=== PATIENT | male | born 1930 | race Caucasian/White ===

== ENCOUNTER → 2016-05-20 | Outpatient (CLI) | payer OTHER | LOC: BMCIMAGING 14:17 | PROVIDERS: ATTEND Internal Medicine | DX: M99.88 Other biomechanical lesions of rib cage (principal) ==

== ENCOUNTER → 2016-08-16 | Outpatient (CLI) | payer OTHER ==
[~2016-08-16] MED LIST: GADOBUTROL 10 ML VIAL IVP ONE
== END ==
LOC: FIMAGING 13:44
PROVIDERS: ATTEND Ophthalmology Pediatric Ophthalmology and Strabismus Specialist
DX: H54.7 Unspecified visual loss (principal); J32.3 Chronic sphenoidal sinusitis
CPT/HCPCS: 70543; 70553; A9585

== ENCOUNTER 2017-01-30 15:12 | Inpatient (IN) | payer OTHER ==
[2017-01-30] MEDS ORDERED: ONDANSETRON DISINTEGRATING 4 MG TAB PO PRN (15:15)
[2017-01-30] MEDS ORDERED: ACETAMINOPHEN 325 MG TAB PO PRN (15:15)
[2017-01-30] MEDS ORDERED: NS 1,000 ML IV SCH (15:15)
[2017-01-30] MEDS ORDERED: ONDANSETRON 4 MG/2 ML VIAL IVP PRN (15:15)
--- NOTE | 2017-01-30 15:24 | PDGENHP ---
History and Physical - Chief Complaint Acute weakness - History of Present Illness Primary oncologist: Dr. Jono Conway HPI: 86-year-old male presenting with acute weakness characterized as generalized, with associated subjective fevers (home temp around 100F), inability to ambulate, and non-productive cough. Onset of the weakness symptoms was several days prior, and duration has been worsening thereafter. The cough has been present for a couple weeks. The patient has also had reportedly low oral intake of solids and liquids, 2/2 dysphagia, although he does not specifically recall aspirating. He notes one episode of non-bloody diarrhea on the date of presentation, which was unusual for him, as he is normally constipated. Of note, the patient received his most recent chemotherapy on 01/20, including dexamethasone 20 mg IV, Velcade, then received subsequent oral dexamethasone 4 mg twice daily, discontinued last week. He notes a tremor which has been present for years, recently worsening. History Information - Allergies/Home Medication List Allergies/Adverse Reactions: No Known Allergies Allergy (Verified 10/17/14 02:50) Home Medications: Acyclovir [Zovirax 200 mg (RX)] 200 mg PO BID 06/17/11 [Last Taken 01/30/17 08: 00] traMADol [Ultram 50 mg (*)] 50 mg PO DAILY 10/17/14 [Last Taken 01/30/17 08:00] Herbals/Supplements -Info Only 1 ea PO DAILY 01/30/17 [Last Taken Unknown] I have personally reviewed and updated: family history, medical history, social history, surgical history - Past Medical History Additional medical history: Multiple myeloma with recently rising capital lambda light chain, 665 on 01/10/2017. chronic kidney disease stage 3 baseline creatinine 1.1. Chronic tremor - Surgical History Additional surgical history: Kyphoplasty L1 - Family History Additional family history: no family hx of MM or parkinson's - Social History Smoking Status: Never smoked Alcohol Use: None Drug Use: None Additional social history: lives w/ , previously independent, arived in wheelchair Review of Systems Review of Systems: ROS: 10pt was reviewed & negative except for what was stated in HPI & below Constitutional: Reports: fever, weakness, other (Anorexia) Respiratory: Reports: cough Gastrointestinal: Reports: diarrhea Physical Exam Physical Exam: Constitutional: no apparent distress, not in pain, chronically ill appearing, No uncomfortable Eyes: PERRL, anicteric sclera, EOMI Ears, Nose, Mouth, Throat: moist mucous membranes, hearing normal, ears appear normal, no oral mucosal ulcers Cardiovascular: regular rate and rhythym, no murmur, rub, or gallop, No edema Respiratory: no respiratory distress, no rales or rhonchi, clear to auscultation Gastrointestinal: soft, non-tender abdomen, no palpable masses, other ( hyperactive bowel sounds), No guarding, No distension Genitourinary: no bladder fullness, no bladder tenderness Skin: warm, normal color, no rashes or abrasions, no fluctuance, no induration, No mottled Neurologic: AAOx3, sensation intact bilaterally, CN II-XII Intact, other ( resting tremor bilat hand, worse w/ intention), No weakness (motor 5/5 bilat UE/ LE) Psychiatric: interacting appropriately, not anxious, not encephalopathic, thought process linear Assessment & Plan Assessment: 86-year-old male presenting with acutely worsening generalized weakness in the setting of multiple myeloma, recent dysphagia, hyponatremia, chronic kidney disease stage 3 Plan: 1. Generalized weakness. Acute, new problem this provider, further workup indicated. Most likely multifactorial in the setting of recent multiple myeloma treatment, underlying undiagnosed Parkinson's disease, poor oral intake with resultant hyponatremia, and chronic kidney disease with recently rising creatinine level, possible steroid-induced myopathy -rule out infectious etiologies with urinalysis, respiratory viral panel -get physical and occupational therapy evaluations -continue to administer full supportive care -TSH and cortisol levels pending -patient choosing to avoid reintroducing dexamethasone, does not like side effects 2. Multiple myeloma. Chronic, with diffuse bony disease, reviewed outside records including 04/25/2014 bone scan demonstrating multiple lytic lesions, worse at the 6th rib -appreciate ongoing oncology consultation -appreciate Oncology discussing ongoing treatment options with the patient and his family 3. Possible Parkinson's disease. Chronic, increases risk of morbidity and/or mortality if present, secondary to anticipated acute decompensation in his physical abilities when he is experiencing other medical issues -recommend outpatient neurology consultation 4. Hyponatremia. Acute, secondary to hypovolemia in the setting of poor oral intake, provide IV normal saline and gauge response 5. Chronic kidney disease stage 3. Patient experiencing some acute dehydration in the setting of poor oral intake with rising BUN, marginally elevated creatinine from baseline of 1.1 -continue to monitor urine output, creatinine, BUN -if creatinine continues to rise, patient should be re-characterized as having acute kidney injury 6. Dysphagia. Get VFSS, get [employer] eval -get CXR to r/o aspiration PNA Diet. Regular as tolerates, Ensure Prophylaxis. High risk patient, heparin subcu Code. Do not resuscitate per my discussion with Mojgan nurse practitioner at [facility] Disposition. Anticipated discharge uncertain this time, anticipated length stay is greater than 48 hr warranting inpatient admission status reasonable medical necessity including acute generalized weakness right patient unable to safely and comma unable to safely complete activities of daily living, in the setting of high risk comorbid chronic multiple myeloma, chronic Parkinson's disease by acute hyponatremia, chronic kidney disease stage 3 with some dehydration possible acute kidney injury. Discussed with Dr. Pam Johnson, she reports to me that oncology will consult on the patient tomorrow.
[2017-01-30] MEDS: NS 500 ML IV SCH (18:46)
[2017-01-30 21:38] LABS: COLOR YELLOW; LEUKOCYTE ESTERASE,URINE NEGATIVE (NEGATIVE); NITRITE,URINE NEGATIVE (NEGATIVE)
[2017-01-30 21:57] LABS: MUCUS 1+ /lpf (NONE-1+)
[2017-01-30] MEDS: HEPARIN 5,000 UNIT/0.5 ML SYR SC SCH (22:40)
[2017-01-30] MEDS: ACYCLOVIR 200 MG CAP PO SCH (22:41)
[2017-01-31] MEDS: NS 500 ML IV SCH (00:46)
[2017-01-31] MEDS: HEPARIN 5,000 UNIT/0.5 ML SYR SC SCH ×3 (06:01→21:07)
[2017-01-31 06:03] LABS: % IMMATURE GRANULYOCYTES 0.4 % (0.0-1.1); ABSOLUTE IMMATURE GRANULOCYTES 0.03 10^3/uL (0.00-0.10); ADD DIFF? NO; ADD MORPH? NO; ADD SCAN? NO; ATYPICAL LYMPHOCYTE FLAG 0 (0-99); FRAGMENT RBC FLAG 20 (0-99); HEMATOCRIT 39.5 % (40.0-51.0); LEFT SHIFT FLG 0 (0-99); LIPEMIA HEMOLYSIS FLAG 80 (0-99); MEAN CELL HEMOGLOBIN 31.6 pg (27.9-34.1); MEAN CELL HEMOGLOBIN CONCENTR. 32.9 g/dL (32.4-36.7); MEAN CELL VOLUME 95.9 fL (81.5-99.8); MEAN PLATELET VOLUME 9.8 fL (8.7-11.7); PLATELET CLUMPS FLAG 10 (0-99); PLATELET COUNT 180 10^3/uL (150-400); RED BLOOD CELL COUNT 4.12 10^6/uL (4.40-6.38); RED CELL DISTRIBUTION WIDTH 13.1 % (11.5-15.2)
[2017-01-31 06:20] LABS: ANION GAP 7 mEq/L (8-16); CALCIUM 8.2 mg/dL (8.5-10.4); CARBON DIOXIDE 24 mEq/l (22-31); CHLORIDE 102 mEq/L (97-110); CREATININE 1.1 mg/dL (0.7-1.3); GLOMERULAR FILTRATION RATE > 60; GLUCOSE 105 mg/dL (70-100); POTASSIUM 4.7 mEq/L (3.5-5.2); SODIUM 133 mEq/L (134-144)
[2017-01-31] MEDS ORDERED: Herbals/Supplements -Info Only PO SCH (09:00)
[2017-01-31] MEDS ORDERED: D5W 1/2 NS 1,000 ML IV SCH (10:15)
--- NOTE | 2017-01-31 10:30 | HOSPPROG ---
Hospitalist Progress Note Assessment/Plan: Weakness - No evidence of infectious etiology, afebrile, nl wbc's. Query if he is hypovolemic. Given his episode of diarrhea, will check GI pathogen panel. This may be a sign of Parkinson's, especially given his recent falls. Discussed with Dr. Johnson, Onc, who does not believe his MM treatment would cause this. -PT/OT evals Multiple myeloma - On Velcade, Daritubimab and Dex (declining the latter due to untoward side effects). Onc doubts these meds are contributing to weakness. Blurred vision - This has been present for a year per pt and he is followed by a retinologist, reportedly no e/o retinopathy. He is s/p cataract surgery. Dysphagia - NPO, awaiting VFSS. D5 NS. -speech / swallow eval - appropriate for reg diet Hyponatremia - mild, suspect hypovolemic. Cont NS and follow. ?Parkinson's - he has had 2 falls recently. Needs neurology consult. CKD - Cr at baseline, 1.1 Code status - DNR DVT PPLX - Lovenox Dispo - cont inpt, PT/OT evals, may benefit from SNF Subjective: Pt is frustrated about being NPO. He is hungry and wants to eat. Denies any pain, fever or focal symptoms. Not really sure why he is here. Objective: Vital Signs Temp Pulse Resp BP Pulse Ox 36.9 C 73 15 138/89 H 93 01/31/17 07:26 01/31/17 07:26 01/31/17 07:26 01/31/17 07:26 01/31/17 07:26 Microbiology 01/30/17 22:45 Respiratory Panel (PCR) - Final Nasal, Sinus - [place] Viral Transport No Organism Detected Laboratory Results 01/31/17 04:52 01/31/17 04:52 01/30/17 01/31/17 02/01/17 05:59 05:59 05:59 Intake Total 1650 Output Total 150 150 Balance 1500 -150 - Physical Exam Constitutional: no apparent distress Eyes: PERRL Ears, Nose, Mouth, Throat: moist mucous membranes Cardiovascular: regular rate and rhythym Respiratory: no respiratory distress Gastrointestinal: normoactive bowel sounds, soft, non-tender abdomen Skin: warm Musculoskeletal: generalized weakness Neurologic: AAOx3, other (mild cog-wheeling LUE, masked facies) Psychiatric: interacting appropriately ICD10 Worksheet Patient Problems: Problems Problem Status Onset Weakness Acute - ICD10 Problem Qualifiers (1) Weakness
[2017-01-31] MEDS: D5W NS 1,000 ML IV SCH ×2 (11:04→21:07)
--- NOTE | 2017-01-31 11:39 | PDMN ---
Medical Necessity Medical necessity: Pt meets IP criteria per MD; est los >2 mn for eval/tx of acute generalized weakness w/inability to ambulate safely/complete ADLs, hyponatremia & dysphagia; admit for further workup/monitoring & therapies; hx multiple myeloma, CKD & possible Parkinson's disease; per H&P & order 01/31/17
[2017-01-31] MEDS: traMADol 50 MG TAB PO SCH (14:50)
[2017-01-31] MEDS: ACYCLOVIR 200 MG CAP PO SCH ×2 (14:50→21:06)
--- NOTE | 2017-01-31 17:48 | ASMTCMCOM ---
CM Note CM Note Notes: Patient here with diagnosis of Multiple Myeloma who has been treated wtith chemo therapy. Patient admitted with weakness feeling it may related to his current regimen. Patient likely to be here for a while. Case management will continue to follow. Date Signed: 01/31/2017 05:48 PM Electronically Signed By:LUDIVINA Lyon
--- NOTE | 2017-01-31 18:32 | GCON ---
[f rep st] CONSULTATION ONCOLOGY CONSULTATION REASON FOR CONSULTATION: History of multiple myeloma, admitted for generalized weakness. HISTORY OF PRESENT ILLNESS: The patient is an 86-year-old male with a long history of multiple myelo ma. He was admitted from the office yesterday after presenting with symptoms of generalized weakness . His myeloma history dates back to May of 2011, when he was diagnosed with an IgG kappa multiple myeloma, stage I. 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 He has had multiple prior therapies including CyBorD, Velc gigi, dexamethasone, Revlimid and more recently daratumumab. He was being treated with daratumumab, d examethasone and bortezomib in the spring and stopped the daratumumab in July. His M protein filiberto fr om 0.4 g/dL to 2.4 g. He was resumed back on therapy with daratumumab, Velcade and dexamethasone and received that on January 20. The patient describes increasing weakness that he cannot necessarily t ie to the therapy. He notes significant blurred vision, which is very frustrating for him. He has h ad bilateral cataract surgery and is seen by Dr. Huerta, retinologist. No retinopathy was identifie d. The patient reports feeling just generalized weakness. He states that he fell in the bathroom a coup le of nights ago. He denies any fevers or chills. He denies sweats, cough, or shortness of breath. He denies any GI symptoms. He is repeatedly asking to go home. PAST MEDICAL HISTORY: Multiple myeloma as per HPI. Mild renal insufficiency with a creatinine of 1. 1. Chronic tremor. PAST SURGICAL HISTORY: History of kyphoplasty at L1, status post bilateral cataract removal, arthros copic surgery of both knees and a prostatectomy in 2000. FAMILY HISTORY: Noncontributory. SOCIAL HISTORY: The patient is to Carla. They have 1 daughter, Chayo. 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 He is a nondrinker and nonsmoker. REVIEW OF SYSTEMS: A 10-point review of systems is negative other than what is stated in HPI. PHYSICAL EXAM: GENERAL: He is an elderly male, sitting comfortably in a chair. VITAL SIGNS: Blood pressure 138/89, heart rate 73, O2 saturation is 93% on 1 L. He is afebrile. HEENT: Extraocular m uscles are intact. Oropharynx has somewhat dry mucosa. HEART: Regular rate. LUNGS: Clear to ausc ultation. ABDOMEN: Soft and nontender. EXTREMITIES: No edema. NEURO: The patient has a flat fac ies and has a mild tremor with a suggestion of some underlying stiffness. LABORATORY DATA: White blood cell count 7.3, hematocrit 39.5, platelets 180. Chemistries: Creatini ne 4.7, sodium 133. IMAGING: Chest x-ray, PA and lateral: Unremarkable. No infiltrate. IMPRESSION: This is an 86-year-old male who has had history of multiple myeloma now for 5 years, rec ently resuming treatment with daratumumab, Velcade and dexamethasone, who presents with increasing we akness and history of a fall a few days ago. It is not clear to me that his weakness is tied to the current therapy, which is typically not very toxic. His appearance is suggestive of Parkinson's. Ho wever, this has not been a formal diagnosis. There are no signs of infection or significant metaboli c abnormality. We will continue to follow along with you, but at this time, there does not appear to be an active on cologic process that is contributing to his symptoms. He may require some type of physical therapy a nd/or treatment of Parkinson's if this is what he is felt to have. /[id number]/MODL
[2017-02-01 05:39] LABS: ANION GAP 3 mEq/L (8-16); CARBON DIOXIDE 27 mEq/l (22-31); CHLORIDE 102 mEq/L (97-110); GLOMERULAR FILTRATION RATE > 60; GLUCOSE 106 mg/dL (70-100); POTASSIUM 4.5 mEq/L (3.5-5.2); SODIUM 132 mEq/L (134-144)
[2017-02-01 05:55] LABS: CALCIUM 7.5 mg/dL (8.5-10.4)
[2017-02-01] MEDS: HEPARIN 5,000 UNIT/0.5 ML SYR SC SCH ×3 (06:07→20:27)
[2017-02-01] MEDS: ACYCLOVIR 200 MG CAP PO SCH ×2 (09:28→20:28)
[2017-02-01] MEDS: traMADol 50 MG TAB PO SCH (09:28)
[2017-02-01] MEDS: D5W NS 1,000 ML IV SCH (09:35)
[2017-02-01] MEDS ORDERED: LACTULOSE 20 GM/30 ML UDCUP PO PRN (10:20)
[2017-02-01] MEDS ORDERED: MAGNESIUM HYDROXIDE 30 ML UDCUP PO PRN (10:20)
[2017-02-01] MEDS ORDERED: BISACODYL 10 MG SUPP PR PRN (10:20)
[2017-02-01] MEDS ORDERED: POLYETHYLENE GLYCOL 3350 17 GM PKT PO PRN (10:20)
--- NOTE | 2017-02-01 13:14 | NEUROPROG ---
Assessment: HOSPITAL NEUROLOGY CONSULT REQUESTING: Jono Blanco MD REASON: ? Parkinson disease HPI: 86 year old right-handed man with a history of multiple myeloma (undergoing active treatment), CKD3 presented 01/30 due to falls and generalized weakness. No family at bedside today, so most of the history is obtained from records review. Patient lives independently with his . He notes a single fall prior to admission when trying to sit on the toilet - he states he lost balance and feel backwards without any major trauma. He's also noted a month of what he describes as "weakness" but elaborates no further. His admitting team was concerned about the possibility of Parkinson disease given his appearance and falls. He states he's had tremors in both hands for "a long time." He states he does get lightheaded sometimes when he stands up. He denies any incontinence. He notes longstanding erectile dysfunction. He cannot tell if he has any defects in thermoregulation. He denies head trauma. No exposure to dopaminergic medications. He does endorse cognitive decline. ROS: As per the HPI, otherwise a complete 12 point ROS was performed and is negative ALLERGIES AND MEDS: As recorded in the EMR - reviewed and reconciled PFSH: As per the intake H&P by Dr. Blanco from 01/30 EXAM: VS reviewed in EMR GEN: WDWN sitting in NAD HEENT: NCAT, sclera anicteric, conjunctiva not injected, eyelids with crust, MMM , oropharynx clear, no scalp tenderness NECK: supple, nontender, no meningismus CV: RRR s1 s2 wo m/r/c/g. Carotid pulses 2+ wo bruit NEURO: MS: awake, alert, oriented to self, place but not date. He is hypomimetic and bradyphrenic. Speech hypophonic and bradykinetic. No language disturbance. Follows commands. Attends to both sides. Gross episodic memory impairment on casual conversation. Mood euthymic. Good fund of knowledge. CN: pupils 3mm round and reactive. Fundi with sharp discs. VFF. Primary gaze centered - no square wave jerks. Full ocular motility, but saccadic intrusions on smooth pursuit. Facial sensation preserved. Face symmetric. Hearing grossly intact to finger rub. Palatoglossal movements intact. Shoulder shrug and head turn strong. MOTOR: normal bulk. Subtle cogwheeling about both wrists symmetrically. Subtle symmetric resting tremor in both hands with activating maneuvers. Full power throughout. SENSORY: intact LT/PP throughout and symmetric. No extinction. COORD: no ataxia FN/HS. Preeti symmetrically bradykinetic -1-2. REFLEX: plantars down. No clonus. Absent ankle jerks, other DTRS 1/4. GAIT: deferred to PT safety eval - patient on O2 and with IV infusion running DATA REVIEW: Labs reviewed in EMR PERSONALLY INTERPRETED RESULTS AND DATA: MRI brain wo - global volume loss with ex vacuo dilitation of the ventricles. Profound/severe/confluent chronic microvascular ischemic change in the periventricular and subcortical white matter and dilated perivascular spaces in the basal ganglia, with a rather sizeable one in the right putamen. 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 Given these findings I am suspicious for vascular parkinsonism as opposed to neurodegenerative idiopathic PD. Levodopa is likely to have an underwhelming response, and I would be hesitant to start a challenge both in the acute care setting and with his documented orthostatic hypotension. I think the best plan going forward would be optimizing vascular risk to prevent progression, as well as a focus on safety. Recommend he work with PT/OT/PUTTY MAKER on determining rehab and long-term care needs. I did not assess his gait, but he is likely a risk of falls given the history and his other exam findings. Followup with his PCP for optimization of BP (HTN being number one risk for his condition), lipids, blood glucose. I would recommend initiating a daily ASA 81mg. He can followup with me in my clinic after he has a safe disposition and has completed any rehab. Will sign off. Please recall PRN. Objective: Vital Signs Temp Pulse Resp BP Pulse Ox 37.0 C 90 17 121/76 H 94 02/01/17 11:07 02/01/17 11:07 02/01/17 11:07 02/01/17 11:07 02/01/17 11:07 Microbiology 01/30/17 22:45 Respiratory Panel (PCR) - Final Nasal, Sinus - [place] Viral Transport No Organism Detected Laboratory Results 01/31/17 04:52 02/01/17 04:43 01/31/17 02/01/17 02/02/17 05:59 05:59 05:59 Intake Total 1650 1400 Output Total 150 750 230 Balance 1500 650 -230 Allergies/Adverse Reactions: No Known Allergies Allergy (Verified 10/17/14 02:50)
--- NOTE | 2017-02-01 16:33 | SOAPPROG ---
SOAP Progress Note Assessment/Plan: A/P: * Generalized weakness, fall, functional decline: appreciate neurology consultation. ?vascular parkinsonism (chronic vascular white matter dz on MRI) . No specific therapy, but needs rehab. 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 - hold dex - f/u with Dr. Conway after rehab 02/01/17 16:34 Subjective: No real complaints. O: VS reviewed. Single temp 38.2. Gen: fatigued, chronically ill appearing. Pleasant. Lungs: CTA. Abd: nontender. Laboratory Tests 01/31/17 02/01/17 04:52 04:43 WBC 7.27 RBC 4.12 L Hgb 13.0 L Hct 39.5 L Plt Count 180 Sodium 132 L Potassium 4.5 Chloride 102 Carbon Dioxide 27 BUN 25 H Creatinine 1.0 Glucose 106 H Objective: Vital Signs Temp Pulse Resp BP Pulse Ox 36.6 C 80 16 159/89 H 91 L 02/01/17 15:38 02/01/17 15:38 02/01/17 15:38 02/01/17 15:38 02/01/17 15:38 Laboratory Results 01/31/17 04:52 02/01/17 04:43 01/31/17 02/01/17 02/02/17 05:59 05:59 05:59 Intake Total 1650 1400 400 Output Total 150 750 230 Balance 1500 650 170 ICD10 Worksheet Patient Problems: Problems Problem Status Onset Weakness Acute
--- NOTE | 2017-02-01 18:27 | HOSPPROG ---
Hospitalist Progress Note Assessment/Plan: Assessment: 86-year-old male presenting with acutely worsening generalized weakness in the setting of multiple myeloma, recent dysphagia, hyponatremia, chronic kidney disease stage 3 Plan: 1. Generalized weakness. Acute, likely multifactorial in setting of vascular parkinsonism and ongoing MM tx / deconditioning - cont PT/OT assessments, unclear if patient safe for home vs. SNF 2. Multiple myeloma. Chronic, with diffuse bony disease, reviewed outside records including 04/25/2014 bone scan demonstrating multiple lytic lesions, worse at the 6th rib -appreciate ongoing oncology consultation -appreciate Oncology discussing ongoing treatment options with the patient and his family 3. 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 Petit's consultation today -asa 81 -check lipid/A1c 4. Hyponatremia. Acute, ongoing, con D5NS 5. Chronic kidney disease stage 3. Patient experiencing some acute dehydration in the setting of poor oral intake with rising BUN, marginally elevated creatinine from baseline of 1.1 -continue to monitor urine output, creatinine, BUN -if creatinine continues to rise, patient should be re-characterized as having acute kidney injury 6. Dysphagia. Cleared by [employer] Diet. Regular as tolerates, Ensure Prophylaxis. High risk patient, heparin subcu Code. Do not resuscitate per my discussion with Mojgan nurse practitioner at [facility] Disposition. ADD 02/02 to home w/ HC vs. SNF Subjective: patient continues to feel weak, no infxn sx Objective: Vital Signs Temp Pulse Resp BP Pulse Ox 36.6 C 88 16 159/89 H 95 02/01/17 15:38 02/01/17 15:57 02/01/17 15:38 02/01/17 15:38 02/01/17 15:57 Laboratory Results 01/31/17 04:52 02/01/17 04:43 01/31/17 02/01/17 02/02/17 05:59 05:59 05:59 Intake Total 1650 1400 400 Output Total 150 750 530 Balance 1500 650 -130 - Pending Discharge Pending Discharge Within 24 Hours: Yes Pending Discharge Date: 02/02/17 Pending Discharge Time: 11:00 - Physical Exam Constitutional: no apparent distress, not in pain, chronically ill appearing, No uncomfortable Cardiovascular: regular rate and rhythym, no murmur, rub, or gallop Respiratory: no respiratory distress, no rales or rhonchi, clear to auscultation Gastrointestinal: normoactive bowel sounds, soft, non-tender abdomen, no palpable masses Neurologic: AAOx3, sensation intact bilaterally, No weakness (5/5 motor bilat LE ) Psychiatric: interacting appropriately, not anxious, not encephalopathic, thought process linear ICD10 Worksheet Patient Problems: Problems Problem Status Onset Weakness Acute
[2017-02-01] MEDS: SENNOSIDES/DOCUSATE SODIUM TAB PO SCH ×2 (20:27→20:29)
[2017-02-02] MEDS: HEPARIN 5,000 UNIT/0.5 ML SYR SC SCH ×3 (05:11→20:54)
[2017-02-02 06:28] LABS: ANION GAP 8 mEq/L (8-16); CALCIUM 7.9 mg/dL (8.5-10.4); CARBON DIOXIDE 27 mEq/l (22-31); CHLORIDE 98 mEq/L (97-110); CREATININE 1.1 mg/dL (0.7-1.3); GLOMERULAR FILTRATION RATE > 60; GLUCOSE 87 mg/dL (70-100); POTASSIUM 4.4 mEq/L (3.5-5.2); SODIUM 133 mEq/L (134-144)
[2017-02-02] MEDS: SENNOSIDES/DOCUSATE SODIUM TAB PO SCH ×2 (10:13→20:54)
[2017-02-02] MEDS: traMADol 50 MG TAB PO SCH (10:13)
[2017-02-02] MEDS: ACYCLOVIR 200 MG CAP PO SCH ×2 (10:13→20:54)
[2017-02-02] MEDS: ASPIRIN EC 81 MG TAB PO SCH (12:09)
--- NOTE | 2017-02-02 15:42 | ASMTCMCOM ---
CM Note CM Note Notes: Pt with hc of multiple myeloma has a new dx of vascular parkinson's. PT and OT are recommending SNF. Pt, and dtr all prefer for pt to return home with home care. [facility] chosen and alerted. Pt will need RN, PT and OT. Pt will also need a cane or walker and a shower seat. Pt's dtr provided loan closet list. Pt will likely be ready for DC tomorrow. Date Signed: 02/02/2017 03:41 PM Electronically Signed By:Clarissa Choi LCSW
--- NOTE | 2017-02-02 16:10 | HOSPPROG ---
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 Generalized weakness. Acute, likely multifactorial in setting of vascular parkinsonism and ongoing MM tx / deconditioning and dehydration - counseled patient and family extensively today, he would like to go home w/ home care, but his PT eval today demonstrated worse functional status and he is high risk of worsening morbidity if discharged home at this time, refusing SNF - will cont to work w/ therapy and reassess tomorrow AM 2. Multiple myeloma. 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 Petit's consultation - asa 81 - check lipid/A1c - f/u Dr. Petit as outpt - counseled patient/family regarding this dx 4. Hyponatremia. Acute, ongoing, cont to monitor 5. Chronic kidney disease stage 3. Patient experiencing some acute dehydration in the setting of poor oral intake with rising BUN, marginally elevated creatinine from baseline of 1.1 - continue to monitor urine output, creatinine, BUN - BUN improved w/ IVF 6. Dysphagia. Cleared by LEASE ADMINISTRATION ANALYST 7. Orthostasis. Likely 2/2 dehydration/hypovolemia and potentiated by parkinsonism - repeat orthostatics now to determine whether safe to initiate anti-HTN Rx 8. Suspected atelectasis. Hypoxic on room air, poor ambulatory abilities - cont IS - will likely require o2 for discharge given ongoing immobility Diet. Regular as tolerates, Ensure Prophylaxis. High risk patient, heparin subcu Code. Do not resuscitate per my discussion with [place] nurse practitioner at [facility] Disposition. ADD 02/03 to home w/ HC vs. SNF Subjective: patient reports no sx, wants to go home, has condom cath Objective: Vital Signs Temp Pulse Resp BP Pulse Ox 37.5 C 89 18 142/84 H 94 02/02/17 15:27 02/02/17 15:27 02/02/17 15:27 02/02/17 15:27 02/02/17 15:27 Laboratory Results 01/31/17 04:52 02/02/17 05:35 02/01/17 02/02/17 02/03/17 05:59 05:59 05:59 Intake Total 1400 940 Output Total 750 1080 Balance 650 -140 - Time Spent With Patient Time Spent with Patient: greater than 35 minutes Time Spent with Patient: Greater than 35 minutes spent on this patients care, greater than 50% of time spent counseling, educating, and coordinating care regarding the above mentioned plan. - Physical Exam Constitutional: no apparent distress, not in pain, chronically ill appearing, No uncomfortable Neurologic: AAOx3, other (masked facies) Psychiatric: not anxious, thought process linear, flat affect, No agitated ICD10 Worksheet Patient Problems: Problems Problem Status Onset Weakness Acute
[2017-02-02 18:03] LABS: HEMOGLOBIN A1C 6.3 % (4.0-6.0)
--- NOTE | 2017-02-02 18:16 | SOAPPROG ---
SOAP Progress Note Assessment/Plan: Assessment: SOAP Progress Note Assessment/Plan: A/P: * Generalized weakness, fall, functional decline: ?vascular parkinsonism ( chronic vascular white matter dz on MRI). No specific therapy, but needs rehab. 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 - hold dex - f/u with Dr. Conway after rehab Subjective: Wants to go home Feels weak, no new symptoms Objective: Vital Signs Temp Pulse Resp BP Pulse Ox 37.5 C 96 18 142/84 H 93 02/02/17 15:27 02/02/17 16:04 02/02/17 15:27 02/02/17 15:27 02/02/17 16:04 Laboratory Results 01/31/17 04:52 02/02/17 05:35 02/01/17 02/02/17 02/03/17 05:59 05:59 05:59 Intake Total 1400 940 400 Output Total 750 1080 670 Balance 650 -140 -270 Physical Exam - Physical Exam General Appearance: alert Neck: supple Respiratory: lungs clear Abdomen: soft ICD10 Worksheet Patient Problems: Problems Problem Status Onset Weakness Acute
[2017-02-03] MEDS: HEPARIN 5,000 UNIT/0.5 ML SYR SC SCH ×3 (05:08→22:16)
[2017-02-03 05:51] LABS: ANION GAP 4 mEq/L (8-16); CALCIUM 7.8 mg/dL (8.5-10.4); CARBON DIOXIDE 28 mEq/l (22-31); CHLORIDE 97 mEq/L (97-110); CHOLESTEROL 117 mg/dL (140-220); CHOLESTEROL/HDL RATIO 4.33 RATIO (1.00-4.97); CREATININE 0.9 mg/dL (0.7-1.3); GLOMERULAR FILTRATION RATE > 60; GLUCOSE 101 mg/dL (70-100); HIGH DENSITY LIPOPROTEIN 27 mg/dL (40-65); LDL/HDL RATIO 2.89 RATIO (1.00-3.64); LOW DENSITY LIPOPROTEIN 78 mg/dL (80-100); NON-HIGH DENSITY LIPOPROTEIN 90 mg/dL (90-129); POTASSIUM 4.9 mEq/L (3.5-5.2); SODIUM 129 mEq/L (134-144); TRIGLYCERIDE 60 mg/dL (40-150); VERY LOW DENSITY LIPOPROTEINS 12 mg/dL (8-25)
[2017-02-03] MEDS: SENNOSIDES/DOCUSATE SODIUM TAB PO SCH ×2 (09:20→20:58)
[2017-02-03] MEDS: ASPIRIN EC 81 MG TAB PO SCH (09:20)
[2017-02-03] MEDS: traMADol 50 MG TAB PO SCH (09:20)
[2017-02-03] MEDS: ACYCLOVIR 200 MG CAP PO SCH ×3 (09:20→20:59)
--- NOTE | 2017-02-03 16:32 | ASMTCMCOM ---
CM Note CM Note Notes: PT/OT are recommending SNF and pt prefers to go home. Met with pt and with OT [place] to discuss rehab vs HC and pt's safety in the home. OT concerned about new O2 and walker at home. Per RN, pt has not gotten up his own all day. The concern is that pt and are being unrealistic about the care that pt will require. Plan is to have come at 10 tomorrow and for PT to work with pt and so they understand the care required. Pt will likely DC tomorrow, either home or SNF. C/M will continue to follow. Date Signed: 02/03/2017 04:32 PM Electronically Signed By:Clarissa Choi LCSW
--- NOTE | 2017-02-03 19:02 | HOSPPROG ---
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 Generalized weakness. Acute, likely multifactorial in setting of vascular parkinsonism and ongoing MM tx / deconditioning and dehydration - counseled patient and family extensively today, he would like to go home w/ home care, but he continues to not get out of bed, so it is unrealistic to believe that he and can safely manage his daily care at home - will cont to work w/ therapy and reassess tomorrow AM w/ present to assist patient, so that they can determine if how he transfers is safe 2. Multiple myeloma. 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 Petit's consultation - asa 81 - LDL/A1c at goal - f/u Dr. Petit as outpt 4. Hyponatremia. Acute, ongoing, cont to monitor 5. Chronic kidney disease stage 3. Patient experiencing some acute dehydration in the setting of poor oral intake with rising BUN, marginally elevated creatinine from baseline of 1.1 - continue to monitor urine output, creatinine, BUN - BUN improved w/ IVF 6. Dysphagia. Cleared by TRANSFORMER MAKER 7. Orthostasis. Likely 2/2 dehydration/hypovolemia and potentiated by parkinsonism - repeat orthostatics now to determine whether safe to initiate anti-HTN Rx 8. Suspected atelectasis. Hypoxic on room air, poor ambulatory abilities - cont IS - will likely require o2 for discharge given ongoing immobility Diet. Regular as tolerates, Ensure Prophylaxis. High risk patient, heparin subcu Code. Do not resuscitate per my discussion with [place] nurse practitioner at [facility] Disposition. ADD 02/04 to home w/ HC vs. SNF Subjective: patient has not gotten out of bed, concerned about his ability to get to bathroom at home Objective: Vital Signs Temp Pulse Resp BP Pulse Ox 36.7 C 94 17 125/70 H 92 02/03/17 17:50 02/03/17 17:50 02/03/17 17:50 02/03/17 17:50 02/03/17 17:50 Laboratory Results 01/31/17 04:52 02/03/17 05:17 02/02/17 02/03/17 02/04/17 05:59 05:59 05:59 Intake Total 940 750 700 Output Total 1080 1020 100 Balance -140 -270 600 - Time Spent With Patient Time Spent with Patient: greater than 35 minutes Time Spent with Patient: Greater than 35 minutes spent on this patients care, greater than 50% of time spent counseling, educating, and coordinating care regarding the above mentioned plan. - Physical Exam Constitutional: no apparent distress, appears nourished, not in pain, chronically ill appearing Neurologic: AAOx3, other (masked facies) Psychiatric: interacting appropriately, not anxious, not encephalopathic, thought process linear, flat affect ICD10 Worksheet Patient Problems: Problems Problem Status Onset Weakness Acute
[2017-02-04 05:49] LABS: ANION GAP 7 mEq/L (8-16); CALCIUM 7.8 mg/dL (8.5-10.4); CARBON DIOXIDE 25 mEq/l (22-31); CHLORIDE 100 mEq/L (97-110); GLOMERULAR FILTRATION RATE > 60; GLUCOSE 115 mg/dL (70-100); POTASSIUM 4.5 mEq/L (3.5-5.2); SODIUM 132 mEq/L (134-144)
[2017-02-04] MEDS: HEPARIN 5,000 UNIT/0.5 ML SYR SC SCH (06:11)
[2017-02-04] MEDS: traMADol 50 MG TAB PO SCH (10:39)
[2017-02-04] MEDS: ASPIRIN EC 81 MG TAB PO SCH (10:39)
[2017-02-04] MEDS: ACYCLOVIR 200 MG CAP PO SCH (10:39)
[2017-02-04] MEDS: SENNOSIDES/DOCUSATE SODIUM TAB PO SCH (10:39)
--- NOTE | 2017-02-04 12:33 | SOAPPROG ---
SOAP Progress Note Assessment/Plan: E&M for Myeloma * Multiple myeloma, IgG kappa: Was off therapy since June until just recently restarted daratumumab + velcade. Disease was progressing at time of restart and he previously responded. * Generalized weakness: Possible vascular parkinsonism? Chronic, increases risk of morbidity and/or mortality if present, appreciate Dr. Petit's consultation. Continue ASA. Unlikely due to reyes and velcade but cannot r/o steroid myopathy. He is off dex. Cannot r/o myeloma although uncommon presentation. Agree with PT. * Chronic kidney disease stage 3. * Disposition: possible 02/04 to home w/ HC vs. SNF. I breached the subject of stopping all therapy and considering hospice but I think they want to discuss with DR. Conway. Subjective: Not getting any better. Wants to go home. with patient. Objective: Vital Signs Temp Pulse Resp BP Pulse Ox 36.4 C 86 18 109/68 80 L 02/04/17 09:45 02/04/17 09:45 02/04/17 09:45 02/04/17 09:45 02/04/17 10:53 Laboratory Results 01/31/17 04:52 02/04/17 04:55 02/03/17 02/04/17 02/05/17 05:59 05:59 05:59 Intake Total 750 900 Output Total 1020 375 50 Balance -270 525 -50 Physical Exam - Physical Exam General Appearance: no apparent distress Respiratory: lungs clear Cardiac/Chest: regular rate, rhythm Neuro/Psych: motor weakness (general) ICD10 Worksheet Patient Problems: Problems Problem Status Onset Weakness Acute
--- NOTE | 2017-02-04 12:57 | ASMTCMCOM ---
CM Note CM Note Notes: Pt ready to DC home today. PT and OT worked with pt and his for care in the homes. They have walker and shower chair. PT and OT both feel pt is still unsafe to go home but pt and do not want SNF. Pt's dtr lives a block away and will be available to assist with needs as they arise. Date Signed: 02/04/2017 12:57 PM Electronically Signed By:Clarissa Choi LCSW
--- NOTE | 2017-02-04 13:04 | PDHOMEO2F ---
Home Oxygen Face to Face Home Orders: I certify that a physician or a nurse practitioner or physician's coding assistant has had a [id number] encounter with this patient on the date of this order due to the diagnosis listed, which relates to the primary reason the patient requires home oxygen. Alternative treatments have been tried, or considered, and deemed ineffective. It is anticipated that supplemental oxygen will result in improvement with treatment. 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 Length of time home oxygen needed: 3 months Home Oxygen Comment: Colored (Green) tubing please, fall risk
--- NOTE | 2017-02-04 13:10 | PDIAF ---
- Diagnosis Diagnosis: Multiple Myeloma, suspected vascular Parkinsonism, BOB Code Status: Do Not Resuscitate - Medication Management Discharge Medications: Medications to Continue on Transfer Acyclovir [Zovirax 200 mg (*)] 200 mg PO BID 06/17/11 [Last Taken 01/30/17 08:00 ] traMADol [Ultram 50 mg (*)] 50 mg PO DAILY 10/17/14 [Last Taken 01/30/17 08:00] Herbals/Supplements -Info Only 1 ea PO DAILY 01/30/17 [Last Taken Unknown] Aspirin EC [Aspirin EC 81 mg (*)] 81 mg PO DAILY #30 tab 02/04/17 [Last Taken Unknown] Vice President Digital Strategist Antibiotics: NA Discharge Medications: Refer to the Discharge Home Medication list for PRN reason. PICC Care - Routine: N/A - Orders Services needed: Home Care, Registered Nurse, Master Membership Director (yaakov melgar patient needs more advanced level of care), Physical Therapy, Occupational Therapy Home Care Face to Face: I certify that this patient was under my care and that I had the required [id number] encounter meeting the encounter requirements on the discharge day. My findings support the fact that the patient is homebound as defined in Home Care Face to Face Continued: CMS Chapter 7 Medicare Benefits Manual 30.1.1 , The condition of the patient is such that there exists a normal inability to leave home and consequently, leaving home would require a considerable and taxing effort. Isolation Type: None Oxygen: 3L NC continuous Diet Recommendation: fluid restriction (use comment for amount) (1.5L/day) Diet Texture: Regular Texture Diet, Thin Liquids, Meds Whole w/Liquids Weigh Patient: weekly Mckeon: Not applicable Activity/Weight Bearing Restrictions: as tolerated, with walker - Labs/Radiology BMP Date: 02/08/17 Call or Fax Lab and Imaging Results to: Dr. Storey and Dr. Conway - Follow Up Care Current Providers and Referrals: Kirit Storey MD [Primary Care Provider] - Jono Conway MD [Medical Doctor] - 3-5 days Rhett Petit DO [Doctor of Osteopathy] - follow up in 1 week
[2017-02-04 15:13] VITALS: BP 126/74; PULSE 78; RESP 19; TEMP 97.8; O2SAT 96
--- NOTE | 2017-02-04 18:06 | PDDCSUM ---
Discharge Summary Discharge Summary: DISCHARGE SUMMARY FOLLOW-UP ITEMS: Outpatient neurology reassessment Repeat creatinine BUN labs next week DATE OF ADMISSION: 01/30/2017 DATE OF DISCHARGE: 02/04/2017 DISCHARGE DIAGNOSES: 1. Acute generalized weakness, multifactorial 2. Chronic multiple myeloma 3. 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 Acute hyponatremia 5. Chronic kidney disease stage 3 6. Dysphagia 7. Acute orthostasis 8. Suspected acute atelectasis CONSULTATIONS: Neurology, Oncology PROCEDURES / IMAGING: Brain MRI demonstrating microvascular disease, no acute infarcts CHIEF COMPLAINT: Acute generalized weakness SUBJECTIVE: Patient continues to experience weakness at time of discharge, he is adamant that he be discharged home PHYSICAL EXAM ON DISCHARGE: Systolic blood pressure is 120-130, heart rate 80, afebrile overnight, satting 80% on room air, stable on 2-3 L nasal cannula, alert awake oriented x3, mast faces, cooperative and follows commands LABS ON DISCHARGE: Serum sodium 132, potassium 4.5, creatinine 1 HOSPITAL COURSE BY PROBLEM: 1. The patient presented with acute generalized weakness which is most likely multifactorial in the setting of vascular parkinsonism, ongoing multiple myeloma with treatment, and resultant deconditioning and dehydration. The patient received aggressive physical and occupational therapy, and our recommendations were to receive ongoing care and assistance with activities of daily living at a nursing home facility. The patient was adamant that he be discharged home, and it extended his hospitalization because we felt unsafe discharging him into his home environment without ongoing coaching and training of the patient and his regarding safe transfers. Our therapist worked diligently with the patient and his , and on 02/04, although we recommended nursing home facility, we did feel that we could safely discharge the patient home with close home care monitoring. Patient's home needs will need to be continuously reassessed by his outpatient providers. 2. Chronic multiple myeloma. Patient has diffuse bony disease, he continues to receive outpatient chemotherapy, he will follow up with his primary oncologist Dr. Jono Conway next week. 3. 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 This is a chronic issue and is a new diagnosis for the patient, evidenced by masked faces, resting tremor, slow and rigid movements, and orthostasis possibly novelties sales representative of autonomic dysregulation. He was seen in consultation by Neurology, they recommended initiating aspirin 81 mg for risk modification, and outpatient neurology follow- up. His hemoglobin A1c and LDL are both at goal. 4. Acute hyponatremia. Secondary to hypovolemia, responded to IV fluid supplementation, then experienced euvolemic component with an elevated urine sodium level. I advised the patient to drink no more than 1.5 L of free water daily. He should have labs recheck next week. Worsening hyponatremia can contribute to further weakness. 5. Chronic kidney disease stage 3. Patient did experience some acute dehydration in the setting of poor oral intake prior to this presentation, evidenced by an elevated BUN, which responded to IV fluids. We spent a considerable amount of time coaching the patient and his regarding proper fluid intake, advising between 1 and 1.5 L of fluid intake per day. 6. Chronic dysphagia. The patient was cleared by our swallow eval, and dietary recommendations were made. 7. Acute orthostasis. Patient had positive orthostasis on admission secondary to dehydration and hypovolemia, likely potentiated by his parkinsonism. Consequently I would recommend that the patient's blood pressure run between 120 and 160, to avoid symptomatic orthostasis. 8. Suspected atelectasis. Patient had acute atelectasis in the setting of immobility, resulting in hypoxia on room air, ongoing oxygen needs at time of discharge. DISCHARGE MEDICATIONS: Please see official discharge medication reconciliation sheet in chart , aspirin 81 mg as well as all other home medications. DISCHARGE INSTRUCTIONS: Please follow up with outpatient Neurology, outpatient Oncology. TIME SPENT: Greater than 30 minutes were spent on direct patient care, as well as discharge planning and preparation.
== END 2017-02-04 16:23 | disposition home health service (06) | DRG 641 ==
LOC: F1N 15:40 → EDSTATUS 15:48
PROVIDERS: ADMIT Internal Medicine; ATTEND Internal Medicine
DX: E86.0 Dehydration (principal); E87.1 Hypo-osmolality and hyponatremia; C90.00 Multiple myeloma not having achieved remission; G21.4 Vascular parkinsonism; R53.1 Weakness; I95.1 Orthostatic hypotension; J98.11 Atelectasis; N18.3 Chronic kidney disease, stage 3 (moderate)
CPT/HCPCS: 92610-GN; 97112-GP; 97116-GP; 97161-GP; 97165-GO; 97530-GP; 97535-GO; G8978-GP-CI; G8979-GP-CI; G8987-GO-CJ; G8988-GO-CI; G8996-GN-CH; G8997-GN-CH; G8998-GN-CH